=== PATIENT | male | born 1990 | race Two or more races ===

== ENCOUNTER 2025-01-17 08:33 | Emergency (ER) | payer BC, MEDICAID, SELFPAY ==
[2025-01-17 08:33] VITALS: BMI 52.7
--- NOTE | 2025-01-17 08:36 | EKG_ITS ---
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
[2025-01-17 08:45] VITALS: BP 155/89; PULSE 75; RESP 20; TEMP 36.6; O2SAT 94
--- NOTE | 2025-01-17 09:04 | PD.EDRME ---
Rapid Medical Screening Exam RME Arrival date/time: 01/17/25 08:33 Chief Complaint: Chest Pain Time Seen by Provider: 01/17/25 09:04 Vital signs: Vital Signs Temperature 97.9 F 01/17/25 08:45 Pulse Rate 75 01/17/25 08:45 Respiratory Rate 20 01/17/25 08:45 Blood Pressure 155/89 H 01/17/25 08:45 Pulse Oximetry (%) 94 L 01/17/25 08:45 Oxygen Delivery Method Room Air 01/17/25 08:45 Pulse ox is 94% room air Vital signs reviewed by provider: Yes RME Narrative: 34-year-old male presents to urgent care with a complaint of sudden onset of chest pain that began at 3:00 this morning. Patient tells me he continues to have chest pain. Also shows concern for multiple and numerous bumps to the upper and lower extremities as well as the thorax in the center of his chest.
--- NOTE | 2025-01-17 09:05 | XR_ITS ---
Examination: PA lateral chest 2 views TECHNIQUE: Upright PA lateral chest 2 views Date and time: January 17, 2025 0920 hours INDICATIONS: Acute chest pain beginning today FINDINGS: Normal heart size Lungs are clear The osseous structures are intact IMPRESSION: No active disease
--- NOTE | 2025-01-17 09:19 | EDNOTE_ITS ---
<Statement entered by Asmita Benoit MD - 01/18/25 08:18> I, Asmita Benoit MD, have reviewed the history, exam, and assessment of the patient. I have evaluated the patient independently and agree with the plan of care documented by [ ]. All diagnostic studies were reviewed and discussed. I confirm the diagnosis as documented by the Resident. I was present during the Medical Decision Making for this patient. The patient's plan of care was created between myself and the Resident and consistent with our discussion of the patient's case. ED General RME/HPI General Chief complaint: Chest Pain Stated complaint: CHEST PAIN SINCE 3AM Time Seen by Provider: 01/17/25 09:04 Arrival date/time: 01/17/25 08:33 RME / HPI RME / HPI narrative: 34-year-old male presents to urgent care with a complaint of sudden onset of chest pain that began at 3:00 this morning. Patient tells me he continues to have chest pain. Also shows concern for multiple and numerous bumps to the upper and lower extremities as well as the thorax in the center of his chest. 34-year-old male with no relevant past medical history comes into the ED with chief complaints of chest pain that started around 3 AM this morning. Patient stated that also yesterday he did have some nausea, but has not had any episodes of vomiting. Patient has no other complaints at this time other than the chest pain. He ruled states that the chest pain is on the lower mid chest and radiates to his back and has been constant since 3 AM and nothing relieves it. Patient states that he also has a bulge/mass at this location which was also similar to multiple bulging/masses that he has altered all his body. He denies having any history of GERD or obstructive sleep apnea. He does state that he drinks around 20+ beers on the weekends and is not every weekend something/every other weekend and his last drink was on Thursday. He also feels a little bit fidgety, but denies feeling anxious at this time. He has no other complaints at this time. Smokes 1 pack/week and, admits drinking 20+ beers per week and, denies any illicit drugs Related Data Previous Rx's ?Medication ?Instructions ?Recorded ibuprofen 800 mg tablet 800 mg PO Q6H PRN pain #10 t abs 09/21/19 albuterol sulfate 90 mcg/actuation 2 puff inhalation Q 6H PRN 02/29/20 aerosol inhaler (Ventolin HFA) shortness of breath or wheezing #8.5 grams azithromycin 500 mg tablet See Rx Instructions PO .COM PLEX #6 02/29/20 tabs promethazine-DM 6.25 mg-15 mg/5 mL 5 ml PO Q6H PRN cou gh #473 mL 02/29/20 oral syrup acetaminophen 500 mg capsule 1,000 mg (2 x 500 mg) PO QID PRN 01/16/21 fever or pain #30 caps albuterol sulfate 90 mcg/actuation 2 puff inhalation Q ID PRN 01/16/21 aerosol inhaler shortness of breath or wheez ing #18 grams azithromycin 250 mg tablet See Rx Instructions PO .COM PLEX #6 01/16/21 tabs meloxicam 7.5 mg tablet 7.5 mg PO QDAY #10 tabs 09/13 08/06 ciprofloxacin HCl 500 mg tablet 500 mg PO BID #20 tabs 11/30/21 (Cipro) metronidazole 500 mg tablet 500 mg PO TID #21 tabs omeprazole 40 mg capsule,delayed 40 mg PO QDAY #30 cap s 01/17/25 release Allergies Allergy/AdvReac Type Severity Reaction Status Date / Time No Known Allergies Allergy Verified 01/17/25 08:35 Review of Systems Review of Systems Systems Reviewed: All systems reviewed, normal except as documented Past Medical History Past Medical History Comments PMH COMMENT: Smokes 1 pack/week and, admits drinking 20+ beers per week and, denies any illicit drugs No PMH NKDA ED Exam Narrative Physical exam: Gen: A&O X 3, NAD HEENT: NCAT, EOMI, Pupils reactive GWENDOLYN, not icteric. External ears normal. No rhinorrhea. Moist mucous membranes. Neck: Supple, full range of motion, no observable masses, No meningeal sign. Lungs: No Respiratory distress, clear bilateral. CV: RRR, no murmurs. Abdomen: Soft, nondistended, No rebound tenderness. MSK: No joint swelling, no redness, peripheral pulses presents, lumbar with no edema. Skin: No rashes, petechiae, lesions. Multiple masses/bumps throughout GWENDOLYN UE and thorax/chest. Neuro: No focal neurological deficits appreciated, sensory and motor intact. Psych: Cooperative, appropriate mood and effect. Course Quality Measures none Orders Category Date Time Status EKG (ED ONLY) *Do not use* NOW Care 01/17/25 08:37 Completed EKG (ED Only) Stat Exams 01/17/25 08:36 Draft XR chest 2V Stat Exams 01/17/25 09:05 Completed Alcohol, Urine Stat Lab 01/17/25 10:10 Completed B-Type Natriuretic Peptide Stat Lab 01/17/25 09:58 Completed CBC Stat Lab 01/17/25 09:58 Completed Comprehensive Metabolic Panel Stat Lab 01/17/25 09:58 Completed Drug Screen,Urine Stat Lab 01/17/25 10:10 Completed LDH (Lactate Dehydrogenase) Stat Lab 01/17/25 09:58 Completed Lipase Stat Lab 01/17/25 09:58 Completed Magnesium Stat Lab 01/17/25 09:58 Completed Partial Thromboplastin Time Stat Lab 01/17/25 09:58 Completed Prothrombin Time with INR Stat Lab 01/17/25 09:58 Completed Troponin I Stat Lab 01/17/25 09:58 Completed Urinalysis Stat Lab 01/17/25 10:10 Received Vital Signs Vital signs: Vital Signs Temperature 97.9 F 01/17/25 08:45 Pulse Rate 75 01/17/25 08:45 Respiratory Rate 20 01/17/25 08:45 Blood Pressure 155/89 H 01/17/25 08:45 Pulse Oximetry (%) 94 L 01/17/25 08:45 Oxygen Delivery Method Room Air 01/17/25 08:45 Discharge Plan Plan Patient Disposition: HOME (Self Care) Prescriptions/Referrals Prescriptions/Med Rec: New omeprazole 40 mg capsule,delayed release(DR/EC) 40 mg PO QDAY Qty: 30 0RF No Action ibuprofen 800 mg tablet 800 mg PO Q6H PRN (Reason: pain) Qty: 10 0RF promethazine-DM 6.25-15 mg/5 mL syrup 5 ml PO Q6H PRN (Reason: cough) Qty: 473 0RF albuterol sulfate [Ventolin HFA] 90 mcg/actuation HFA aerosol inhaler 2 puff INH Q6H PRN (Reason: shortness of breath or wheezing) Qty: 8.5 0RF azithromycin 500 mg tablet See Rx Instructions .ROUTE .COMPLEX Qty: 6 0RF Rx Instructions: take 500 mg today (day 1), then 250 mg for 4 days (days 2-5) albuterol sulfate 90 mcg/actuation HFA aerosol inhaler 2 puff inhalation QID PRN (Reason: shortness of breath or wheezing) Qty: 18 0RF azithromycin 250 mg tablet See Rx Instructions .ROUTE .COMPLEX Qty: 6 0RF Rx Instructions: take 500 mg today (day 1), then 250 mg for 4 days (days 2-5) acetaminophen 500 mg capsule 1,000 mg PO QID PRN (Reason: fever or pain) Qty: 30 0RF meloxicam 7.5 mg tablet 7.5 mg PO QDAY Qty: 10 0RF ciprofloxacin HCl [Cipro] 500 mg tablet 500 mg PO BID Qty: 20 0RF metronidazole 500 mg tablet 500 mg PO TID Qty: 21 0RF Referrals: Mehran Quiñonez MD [Primary Care Provider] - In 1 week Problem List Clinical Impression: Atypical chest pain, Elevated blood pressure reading, Acid reflux Patient/Caregiver Discharge Instructions Other Activity Instructions:: Follow-up with primary care physician within 5 days You have been started on omeprazole daily for 30 days. We recommend follow-up outpatient for further evaluation of masses/bulges. Would recommend outpatient follow-up for A1c and lipid panel. Would recommend outpatient follow-up for elevated blood pressure. Come back to the ER if you continue with chest pain, chest pain increases, you develop any abdominal pain, nausea, vomiting, dizziness, or any worsening symptoms. Education Materials: ED Chest Pain, Noncardiac, ED GERD (Adult) Print Language: Latvian Stand Alone Forms: Sigrid Award Info., Patient Portal Info Letter [facility] Narrative [facility] hospital course: 9:05: Patient was greeted and assessed by myself after chart was reviewed. Patient does complain of chest pain which is somewhat reproducible on palpation of lower mid chest. Patient does not look diaphoretic at this time. Patient has not had any shortness of breath and does not look to be in any acute distress. EKG did not show any acute ST changes. 10:55: Labs and imaging were reviewed. Troponins were negative. And otherwise labs look unremarkable. At this time patient is stable enough to be discharged home. Will need follow-up with outpatient primary care physician. Case disclosed with Attending Dr. Kaycee Lacey PGY2 Disclaimer: Even though this this note was dictated by speech recognition and even though it was carefully revised there may still be minor errors in delivery coordinator due to voice recognition software.
[2025-01-17 10:15] LABS: Basophils # (Auto) 0.0 Thou/mm3 (0.0-0.2); Basophils % (Auto) 1 % (0-2.5); Eosinophils # (Auto) 0.2 Thou/mm3 (0.0-0.5); Eosinophils % (Auto) 2 % (0-10); Hematocrit 50.2 % (41.0-53.0); Hemoglobin 16.9 g/dL (13.5-16.0); Immature Granulocytes Auto 0.03 Thou/mm3 (0.00-0.00); Lymphocytes # (Auto) 2.2 Thou/mm3 (1.0-4.8); Lymphocytes % (Auto) 28 % (10-50); Mean Corpuscular HGB Conc 33.7 g/dl (31.0-37.0); Mean Corpuscular Hemoglobin 30.0 pg (25.0-35.0); Mean Corpuscular Volume 89 fL (80-100); Monocytes # (Auto) 0.8 Thou/mm3 (0.0-0.8); Monocytes % (Auto) 10 % (0-12); Neutrophils # (Auto) 4.6 Thou/mm3 (1.8-7.7); Neutrophils % (Auto) 59 % (37-80); Nucleated Red Blood Cell # 0.00 Thou/mm3 (0.00-0.00); Nucleated Red Blood Cell % 0 /100 WBC (0); Platelet Count 252 Thou/mm3 (140-440); RDW Standard Deviation 45.1 fL (35.1-43.9); Red Blood Count 5.63 Miln/mm3 (4.50-5.90); White Blood Count 7.8 Thou/mm3 (3.8-10.6)
[2025-01-17 10:24] LABS: Collection Type, Urine Clean Catch
[2025-01-17 10:30] LABS: B-Type Natriuretic Peptide < 20 pg/mL (0-100)
[2025-01-17 10:30] LABS: Bilirubin,Urine Negative (Negative); Blood,Urine 1+ (Negative); Clarity,Urine Clear (Clear/Hazy); Color,Urine Lt-Yellow (Lt Yel-Yel); Glucose, Urine Negative (Negative); Ketones,Urine Negative (Negative); Leukocyte Esterase,Urine Negative (Negative); Nitrite,Urine Negative (Negative); PH,Urine 6.0 (5.0-7.0); Protein,Urine Trace (Neg - Trace); RBC,Urine 3 /hpf (0-3); Specific Gravity,Urine 1.026 (1.001-1.035); Squamous Epithelial Cell,Urine 2 /hpf (0-5); Urobilinogen,Urine Negative mg/dL (0.0-1.0); WBC,Urine 2 /hpf (0-5)
[2025-01-17 10:31] LABS: Alanine Aminotransferase 11 U/L (10-49); Albumin, Serum 4.2 gm/dL (3.5-5.0); Albumin/Globulin Ratio 1.8 (1.2-2.2); Alkaline Phosphatase 93 U/L (46-116); Anion Gap 7 (7-16); Aspartate Amino Transferase 15 U/L (0-34); BUN/Creatinine Ratio 10 Ratio (12-20); Bilirubin,Total 1.0 mg/dL (0.3-1.2); Blood Urea Nitrogen 9 mg/dL (9-23); Calcium 9.1 mg/dL (8.3-10.6); Calcium (Corrected) 9.1 mg/dL (8.5-10.1); Carbon Dioxide 29.6 mMol/L (20.0-31.0); Chloride 106 mMol/L (98-107); Creatinine (Component) 0.9 mg/dL (0.6-1.3); Estimated Creatinine Clearance 154.4 mL/min (>60); Globulin 2.3 gm/dL (2.3-3.5); Glucose 101 mg/dL (74-106); LDH (Lactate Dehydrogenase) 139 U/L (120-246); Lipase 36 U/L (12-53); Magnesium 1.7 mg/dL (1.6-2.6); Osmolality,Calculated 283 (275-295); Potassium 4.3 mMol/L (3.4-5.1); Sodium 143 mMol/L (136-145); Total Protein 6.5 gm/dL (5.7-8.2); Troponin I < 0.002 ng/mL (0.0-0.045); eGFR > 60 See Note
[2025-01-17 10:32] LABS: INR 1.1 (0.9-1.3); Partial Thromboplastin Time 26.1 Seconds (22.0-36.0); Prothrombin Time 11.6 Seconds (9.0-12.2)
[2025-01-17 10:34] LABS: Alcohol, Urine Negative (Negative); Amphetamine/Methamp Scrn,U Negative (Negative); Barbiturate Screen,Urine Negative (Negative); Benzodiazepines Screen,Urine Negative (Negative); Benzoylecgonine Screen, Ur Negative (Negative); Fentanyl Screen,Urine Negative (Negative); Opiate Screen,Urine Negative (Negative); THC Screen,Urine Negative (Negative)
== END 2025-01-17 11:15 | disposition home or self-care (01) ==
PROVIDERS: Physician Assistant; Emergency Provider Emergency Medicine; PCP Family Medicine
DX: K21.9 Gastro-esophageal reflux disease without esophagitis (principal); R07.89 Other chest pain; R03.0 Elevated blood-pressure reading, without diagnosis of hypertension; R94.31 Abnormal electrocardiogram [ECG] [EKG]; F17.210 Nicotine dependence, cigarettes, uncomplicated
CPT/HCPCS: 36415; 71046; 80053; 80307; 80320; 81001; 83615; 83690; 83735; 83880; 84484; 85025; 85610; 85730; 93005; 99283; G0480

== ENCOUNTER 2025-02-15 13:02 | Emergency (ER) | payer BC, MEDICAID, SELFPAY ==
[2025-02-15 13:11] VITALS: BP 134/84; PULSE 102; RESP 20; TEMP 37.2; O2SAT 94; BMI 53.2
--- NOTE | 2025-02-15 13:16 | XR_ITS ---
Examination: CT abdomen and pelvis without contrast. Coronal 3-D reconstructions. Sagittal 2-D reconstructions. Date and time of exam:February 15, 2025, 1455 hours, comparison 03/31/2022. INDICATIONS: Onset bilateral flank pain today CTDI: vol (mGy): 20.9 DLP: (mGycm): 1125 Technique: Axial images of the abdomen have been obtained, 3 mm slice thickness Intravenous contrast material has not been administered. Low dose protocols were performed. One or more of the following dose reduction techniques were used; automated exposure control, adjustment of the mA and/or KV according to patient size, use of iterative reconstruction technique. Findings: No focal liver or splenic lesions No gallstones No pancreatic or adrenal mass. 6 cm right renal cyst No renal or ureteral calculi, no hydronephrosis Aorta normal size Normal appendix No bowel obstruction Colonic diverticulosis, no diverticulitis Normal seminal vesicles, normal size prostate Contracted urinary bladder Mild disc narrowing L5-S1 IMPRESSION: 6 cm right renal cyst No renal or ureteral calculi, no hydronephrosis No perinephric stranding Normal appendix No bladder mass or bladder calculi Negative for cystitis
--- NOTE | 2025-02-15 13:16 | EKG_ITS ---
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1990 Requested By: Gerald Auguste (TECHNICAL HEALTHCARE CONSULTANT) Order Number: [id number] Reading MD: Gerald Auguste (TECHNICAL HEALTHCARE CONSULTANT) Measurements Intervals [place] Rate: 99 P: 37 FL: 139 QRS: -46 QRSD: 102 T: 29 QT: 325 QTc: 418 Interpretive Statements SINUS RHYTHM LOW QRS VOLTAGE IN PRECORDIAL LEADS [QRS DEFLECTION < 1.0 mV IN CHEST LEADS] PATTERN CONSISTENT WITH PULMONARY DISEASE INCOMPLETE RIGHT BUNDLE BRANCH BLOCK [90+ ms QRS DURATION, TERMINAL R IN V1/V2, 40+ ms S IN I/aVL/V4/V5/V6] LEFT ANTERIOR FASCICULAR BLOCK [QRS AXIS <= -45, QR IN I, RS IN II] Compared to ECG 01/17/2025 08:40:47 Incomplete right bundle-branch block now present Left anterior fascicular block now present /store/S0/[id number]
--- NOTE | 2025-02-15 13:17 | PD.EDRME ---
Rapid Medical Screening Exam RME Arrival date/time: 02/15/25 13:02 34-year-old male presents to the emergency department for complaint of lower back pain, chest pressure and generalized weakness Chief Complaint: General Adult/Misc Complain Vital signs: Vital Signs Temperature 99.0 F 02/15/25 13:11 Pulse Rate 102 H 02/15/25 13:11 Respiratory Rate 20 02/15/25 13:11 Blood Pressure 134/84 H 02/15/25 13:11 Pulse Oximetry (%) 94 L 02/15/25 13:11 Oxygen Delivery Method Room Air 02/15/25 13:11
[2025-02-15 13:37] LABS: Basophils # (Auto) 0.0 Thou/mm3 (0.0-0.2); Basophils % (Auto) 0 % (0-2.5); Eosinophils # (Auto) 0.1 Thou/mm3 (0.0-0.5); Eosinophils % (Auto) 1 % (0-10); Hematocrit 51.1 % (41.0-53.0); Hemoglobin 16.8 g/dL (13.5-16.0); Immature Granulocytes Auto 0.04 Thou/mm3 (0.00-0.00); Lymphocytes # (Auto) 0.7 Thou/mm3 (1.0-4.8); Lymphocytes % (Auto) 7 % (10-50); Mean Corpuscular HGB Conc 32.9 g/dl (31.0-37.0); Mean Corpuscular Hemoglobin 29.5 pg (25.0-35.0); Mean Corpuscular Volume 90 fL (80-100); Monocytes # (Auto) 0.7 Thou/mm3 (0.0-0.8); Monocytes % (Auto) 8 % (0-12); Neutrophils # (Auto) 7.3 Thou/mm3 (1.8-7.7); Neutrophils % (Auto) 83 % (37-80); Nucleated Red Blood Cell # 0.00 Thou/mm3 (0.00-0.00); Nucleated Red Blood Cell % 0 /100 WBC (0); Platelet Count 241 Thou/mm3 (140-440); RDW Standard Deviation 46.2 fL (35.1-43.9); Red Blood Count 5.69 Miln/mm3 (4.50-5.90); White Blood Count 8.9 Thou/mm3 (3.8-10.6)
[2025-02-15 13:54] LABS: Alanine Aminotransferase 20 U/L (10-49); Albumin, Serum 4.6 gm/dL (3.5-5.0); Albumin/Globulin Ratio 1.9 (1.2-2.2); Alkaline Phosphatase 95 U/L (46-116); Anion Gap 8 (7-16); Aspartate Amino Transferase 24 U/L (0-34); BUN/Creatinine Ratio 9 Ratio (12-20); Bilirubin,Total 1.1 mg/dL (0.3-1.2); Blood Urea Nitrogen 8 mg/dL (9-23); Calcium 10.0 mg/dL (8.3-10.6); Calcium (Corrected) 10.0 mg/dL (8.5-10.1); Carbon Dioxide 28.7 mMol/L (20.0-31.0); Chloride 102 mMol/L (98-107); Creatinine (Component) 0.9 mg/dL (0.6-1.3); Estimated Creatinine Clearance 155.3 mL/min (>60); Globulin 2.4 gm/dL (2.3-3.5); Glucose 129 mg/dL (74-106); Lipase 28 U/L (12-53); Osmolality,Calculated 277 (275-295); Potassium 4.0 mMol/L (3.4-5.1); Sodium 139 mMol/L (136-145); Total Protein 7.0 gm/dL (5.7-8.2); Troponin I < 0.002 ng/mL (0.0-0.045); eGFR > 60 See Note
[2025-02-15 14:37] LABS: Collection Type, Urine Clean Catch
[2025-02-15] MEDS: IBUPROFEN TAB 400 MG TABLET 800 MG PO (14:49)
[2025-02-15 14:51] LABS: Bacteria,Urine Rare; Bilirubin,Urine Negative (Negative); Blood,Urine 1+ (Negative); Clarity,Urine Clear (Clear/Hazy); Color,Urine Yellow (Lt Yel-Yel); Culture Indicated,Urine Not Indicated; Glucose, Urine Negative (Negative); Ketones,Urine Negative (Negative); Leukocyte Esterase,Urine Negative (Negative); Nitrite,Urine Negative (Negative); PH,Urine 6.0 (5.0-7.0); Protein,Urine Trace (Neg - Trace); RBC,Urine 6 /hpf (0-3); Specific Gravity,Urine 1.031 (1.001-1.035); Squamous Epithelial Cell,Urine 1 /hpf (0-5); Urobilinogen,Urine Negative mg/dL (0.0-1.0); WBC,Urine 3 /hpf (0-5)
--- NOTE | 2025-02-15 17:40 | EDNOTE_ITS ---
<Statement entered by Asmita Benoit MD - 02/25/25 11:09> As co-signing physician, I was present and available for consult prn. I concur with the plan and care as documented by the midlevel provider. ED General RME/HPI General Chief complaint: General Adult/Misc Complain Stated complaint: STAPLES, CP, L FLANK PAIN Time Seen by Provider: 02/15/25 16:50 Arrival date/time: 02/15/25 13:02 RME / HPI RME / HPI narrative: 34-year-old male presents to the emergency department for complaint of lower back pain, chest pressure and generalized weakness, headache, body aches, since early yesterday. Severity of symptoms moderate. Patient denies any fever denies any other complaints no medications taken prior to arrival. Related Data Previous Rx's ?Medication ?Instructions ?Recorded ibuprofen 800 mg tablet 800 mg PO Q6H PRN pain #10 t abs 09/21/19 albuterol sulfate 90 mcg/actuation 2 puff inhalation Q 6H PRN 02/29/20 aerosol inhaler (Ventolin HFA) shortness of breath or wheezing #8.5 grams azithromycin 500 mg tablet See Rx Instructions PO .COM PLEX #6 02/29/20 tabs promethazine-DM 6.25 mg-15 mg/5 mL 5 ml PO Q6H PRN cou gh #473 mL 02/29/20 oral syrup acetaminophen 500 mg capsule 1,000 mg (2 x 500 mg) PO QID PRN 01/16/21 fever or pain #30 caps albuterol sulfate 90 mcg/actuation 2 puff inhalation Q ID PRN 01/16/21 aerosol inhaler shortness of breath or wheez ing #18 grams azithromycin 250 mg tablet See Rx Instructions PO .COM PLEX #6 01/16/21 tabs meloxicam 7.5 mg tablet 7.5 mg PO QDAY #10 tabs 09/13 08/06 ciprofloxacin HCl 500 mg tablet 500 mg PO BID #20 tabs 11/30/21 (Cipro) metronidazole 500 mg tablet 500 mg PO TID #21 tabs omeprazole 40 mg capsule,delayed 40 mg PO QDAY #30 cap s 01/17/25 release Allergies Allergy/AdvReac Type Severity Reaction Status Date / Time No Known Allergies Allergy Verified 02/15/25 13:04 Review of Systems Review of Systems Narrative Review of Systems: Review of system reviewed and within normal limits except mentioned in HPI ED Exam Narrative Physical exam: VITAL SIGNS: Reviewed. GENERAL APPEARANCE: Alert and interactive, follows commands, no acute distress, HEAD AND FACE: Non-traumatic. ENT: PERRL, pink conjunctivitis, eyelid no trauma, Mucous membrane moist. NECK: Supple, nontender, no nuchal rigidity. CHEST: No tenderness, no crepitus, no paradoxical movement, no retractions. LUNGS: Clear, well ventilated, symmetric, no rales, no wheezing, no ronchi, no stridor, good breath sounds bilaterally. HEART: Regular rate, regular rhythm, no murmur, no gallops. ABDOMEN: Soft, positive bowel sounds, nondistended, no guarding, nontender, no rebound, no masses, RECTAL: Deferred. GENITAL: Deferred. NEUROLOGICAL: Gross motor function intact sensory function intact, Appropriate for age. MUSCULOSKELETAL: low back nontender, full range of motion. EXTREMITIES: Nontender, full range of motion. SKIN: Color pink, dry, no rash, no lacerations, no abrasions, no contusions. Multiple lipomatous masses scattered all over the body LYMPHATICS: Deferred. Course Quality Measures none Orders Category Date Time Status Bedside COVID-19 Antigen Test NOW Care 02/15/25 13:17 Active Bedside Influenza A&B Antigen Test NOW Care 02/15/25 13:17 Completed EKG (ED ONLY) *Do not use* NOW Care 02/15/25 13:[address] abdomen pelvis wo con Stat Exams 02/15/25 13:16 Completed EKG (ED Only) Stat Exams 02/15/25 13:16 Draft CBC Stat Lab 02/15/25 13:22 Completed Comprehensive Metabolic Panel Stat Lab 02/15/25 13:22 Completed Lipase Stat Lab 02/15/25 13:22 Completed Troponin I Stat Lab 02/15/25 13:22 Completed UA, C/S IF [Urinalysis, C/S if Indicated] Stat Lab 02/15/25 14:22 Completed Ibuprofen Tab [Motrin Tab] Med 02/15/25 14:21 Discontinued 800 mg PO X1 ONE Vital Signs Vital signs: Vital Signs Temperature 99.0 F 02/15/25 13:11 Pulse Rate 102 H 02/15/25 13:11 Respiratory Rate 20 02/15/25 13:11 Blood Pressure 134/84 H 02/15/25 13:11 Pulse Oximetry (%) 94 L 02/15/25 13:11 Oxygen Delivery Method Room Air 02/15/25 13:11 Discharge Plan Plan Patient Disposition: HOME (Self Care) Discharge Disposition comment: Stable Prescriptions/Referrals Prescriptions/Med Rec: No Action ibuprofen 800 mg tablet 800 mg PO Q6H PRN (Reason: pain) Qty: 10 0RF promethazine-DM 6.25-15 mg/5 mL syrup 5 ml PO Q6H PRN (Reason: cough) Qty: 473 0RF albuterol sulfate [Ventolin HFA] 90 mcg/actuation HFA aerosol inhaler 2 puff INH Q6H PRN (Reason: shortness of breath or wheezing) Qty: 8.5 0RF azithromycin 500 mg tablet See Rx Instructions .ROUTE .COMPLEX Qty: 6 0RF Rx Instructions: take 500 mg today (day 1), then 250 mg for 4 days (days 2-5) albuterol sulfate 90 mcg/actuation HFA aerosol inhaler 2 puff inhalation QID PRN (Reason: shortness of breath or wheezing) Qty: 18 0RF azithromycin 250 mg tablet See Rx Instructions .ROUTE .COMPLEX Qty: 6 0RF Rx Instructions: take 500 mg today (day 1), then 250 mg for 4 days (days 2-5) acetaminophen 500 mg capsule 1,000 mg PO QID PRN (Reason: fever or pain) Qty: 30 0RF meloxicam 7.5 mg tablet 7.5 mg PO QDAY Qty: 10 0RF ciprofloxacin HCl [Cipro] 500 mg tablet 500 mg PO BID Qty: 20 0RF metronidazole 500 mg tablet 500 mg PO TID Qty: 21 0RF omeprazole 40 mg capsule,delayed release(DR/EC) 40 mg PO QDAY Qty: 30 0RF Referrals: No Primary/Family,Physician [Primary Care Provider] - In 1 week Problem List Clinical Impression: COVID, Renal cyst Patient/Caregiver Discharge Instructions Discharge Activity: activity as tolerated Education Materials: Human Coronaviruses Additional Instructions: Thank you for the opportunity for serving you today. You are stable for discharged . You are advised to: Follow-up with your PCP in 1 to 2 days Return to ED for worsening of symptoms Increase oral fluids Take Tylenol or Motrin as needed for pain and fever Print Language: Sri Lankan Stand Alone Forms: Sigrid Award Info., Work/School Release, Patient Portal Info Letter MOMO/MARIO Supervising Physician JEFF Supervising Physician: MD Kaycee [facility] Narrative [facility] hospital course: 34-year-old male presents to the emergency department for complaint of lower back pain, chest pressure and generalized weakness, headache, body aches, since early yesterday. Severity of symptoms moderate. Patient denies any fever denies any other complaints no medications taken prior to arrival. Patient tested positive for COVID-19, reports workup came back unremarkable. CT scan of the abdomen pelvis showed right renal cyst about 6 mm. Results discussed with the patient patient was also given a copy of his CT scan. Advised to follow-up closely with PCP regarding lipomatous lesion noted on the subcutaneous area scattered all over and renal cyst. Patient told me that he had incoming appointment with PCP in few days. Stable for discharge home Medication Administration(s) Medication Administration History Discontinued Medications Ibuprofen (Ibuprofen Tab 400 Mg Tablet) 800 mg PO X1 ONE Stop: 02/15/25 14:22 Last Admin: 02/15/25 14:49 Dose: 800 mg Documented By: Diagnosis Differential diagnosis: URI, COVID, lipoma, renal cyst Most likely dx, and/or detailed dx discussion: COVID, renal cyst
== END 2025-02-15 17:57 | disposition home or self-care (01) ==
PROVIDERS: Nurse Practitioner Primary Care; Emergency Provider Emergency Medicine
DX: U07.1 COVID-19 (principal); N28.1 Cyst of kidney, acquired; R07.89 Other chest pain
CPT/HCPCS: 36415; 74176; 80053; 81001; 83690; 84484; 85025; 87400; 87811; 93005; 99284; A9270